=== PATIENT | male | born 1945 | race Caucasian/White ===

== ENCOUNTER → 2020-04-05 | Outpatient (CLI) | payer BC ==
[2014-12-31 10:11] VITALS: BP 117/68
[~2020-04-05] MED LIST: ASPI-482 PO; CARV12.5 PO; GEMF600T8 PO; LISI-130 PO; METF500T16 PO; MULT-18 PO; NIAC500C PO; NIAC50TA3 PO; OMEG1CAP6 PO
--- NOTE | 2020-04-05 16:05 | CARD ---
MR#: [id number] Date of Study: 04/05/2020 Ordering Physician: ROBIN MOORE, Referring Physician: ROBIN MOORE, Tech: Marisela Lane SNOW APPROVED REPORT EXAM: Two-dimensional and M-mode echocardiogram with Doppler and color Doppler. Other Information Quality : Good INDICATION S/P CABG Surgery/Intervention CABG: Date: 2007 or 2008 Site: [facility] 2D DIMENSIONS RVDd3.3 (2.9-3.5cm)Left Atrium(2D)4.3 (1.6-4.0cm) IVSd1.1 (0.7-1.1cm)Aortic Root(2D)3.3 (2.0-3.7cm) LVDd5.5 (3.9-5.9cm)LVOT Diameter2.2 (1.8-2.4cm) PWd0.8 (0.7-1.1cm)LVDs4.0 (2.5-4.0cm) FS (%) 22.0 %SV73.1 ml Aortic Valve AoV Peak Mack.128.2cm/sAoV VTI23.7cm AO Peak GR.6.6mmHgLVOT Peak Mack.92.1cm/s AO Mean GR.4mmHgAVA (VMAX)2.62cm2 QUENTIN (VTI)2.80cm2 Mitral Valve MV E Uqcqfasx38.5cm/sMV DECEL [id number] MV A Ekhfxggi83.4cm/sE/A Ratio0.9 Pulmonary Vein S1 Jeldmbjr59.8cm/sD2 Wjwtkmvh64.2cm/s LEFT VENTRICLE The left ventricle is normal size. There is normal left ventricular wall thickness. The systolic func tion is mildly impaired. The ejection fraction is 45%. Septal motion consistent with post-operative s hughes. Transmitral Doppler flow pattern is Grade I-abnormal relaxation pattern. RIGHT VENTRICLE The right ventricle is normal size. The right ventricular systolic function is normal. ATRIA The left atrium is mildly dilated. The right atrium size is normal. The interatrial septum is intact with no evidence for an atrial septal defect or patent foramen ovale as noted on 2-D or Doppler imagi ng. AORTIC VALVE The aortic valve is calcified but opens well. Doppler and Color Flow revealed no significant aortic r egurgitation. There is no significant aortic valvular stenosis. MITRAL VALVE The mitral valve is calcified but opens well. There is no evidence of mitral valve prolapse. There is no mitral valve stenosis. Doppler and Color-flow revealed trace mitral regurgitation. TRICUSPID VALVE The tricuspid valve is normal in structure and function. Doppler and Color Flow revealed no tricuspid valve regurgitation noted. There is no tricuspid valve stenosis. PULMONIC VALVE The pulmonic valve is not well visualized. Doppler and Color Flow revealed mild pulmonic valvular reg urgitation. There is no pulmonic valvular stenosis. GREAT VESSELS The aortic root is normal in size. The ascending aorta is mildly dilated 3.6 cm. The IVC is normal in size and collapses >50% with inspiration. PERICARDIAL EFFUSION There is no evidence of significant pericardial effusion. Critical Notification Critical Value: No <Conclusion> The left ventricle is normal size. The systolic function is mildly impaired. The ejection fraction is 45%. Septal motion consistent with post-operative state. Doppler and Color Flow revealed no significant aortic regurgitation. There is no significant aortic valvular stenosis. Doppler and Color-flow revealed trace mitral regurgitation. Doppler and Color Flow revealed no tricuspid valve regurgitation noted. Doppler and Color Flow revealed mild pulmonic valvular regurgitation. The ascending aorta is mildly dilated 3.6 cm. Signed by : Robin Moore MD Electronically Approved : 04/05/2020 16:05:40
== END ==
LOC: ECHO 13:00
PROVIDERS: ATTEND Internal Medicine Cardiovascular Disease
DX: I08.8 Other rheumatic multiple valve diseases (principal); Z95.1 Presence of aortocoronary bypass graft
CPT/HCPCS: 93306